=== PATIENT | female | born 1985 | race African-American/Black ===

== ENCOUNTER 2023-05-20 16:45 | Emergency (ER) | payer BC ==
[~2023-05-20] VITALS: Ht 157.5 cm; Wt 71.0 kg
[2023-05-20 17:07] VITALS: O2SAT 100
[2023-05-20] MEDS ORDERED: ONDANSETRON HCL 4MG/2ML INJ IV NR (17:15)
[2023-05-20 17:28] LABS: BASOPHILS % 0.2 % (0.0-2.0); EOSINOPHILS % 0.1 % (0.0-5.0); HEMATOCRIT. 34.1 % (36.0-48.0); HEMOGLOBIN. 11.6 g/dL (12.0-16.0); LYMPHOCYTES % 7.7 % (20.0-50.0); MEAN CORPUSCULAR HEMOGLOBIN 27.8 pg (28.0-32.0); MEAN CORPUSCULAR VOLUME 82.1 fL (81.0-99.0); MEAN PLATELET VOLUME 9.3 fl (7.4-10.4); MONOCYTES % 5.9 % (2.0-8.0); NEUTROPHILS % 86.1 % (40.0-76.0); PLATELET 303 x1000/uL (130-400); RED BLOOD CELL COUNT 4.15 mill/uL (4.2-5.4); RED CELL DISTRIBUTION WIDTH 16.2 % (11.6-14.6)
[2023-05-20 17:36] LABS: CHLORIDE 101 mEq/L (98-107)
[2023-05-20 17:54] LABS: HCG SCREEN NEGATIVE
[2023-05-20] MEDS ORDERED: MORPHINE SULFATE 4 MG/ML CPJ (NOT FOR IM USE) IV ONE ×2 (19:15→23:00)
[2023-05-20] MEDS ORDERED: SODIUM CHLORIDE 0.9% 1,000 ML IV ONE (23:00)
[2023-05-21 00:30] VITALS: BP 128/80; PULSE 80; RESP 19; TEMP 98.9
== END 2023-05-21 01:50 | disposition home or self-care (01) ==
LOC: ER 16:45
DX: R10.9 Unspecified abdominal pain (principal); Z90.710 Acquired absence of both cervix and uterus; Z98.890 Other specified postprocedural states
CPT/HCPCS: 99285; 96374; 76856; 96361; 96375; 80053; 84703; 85025; 36415; 96376; J2405; J2270; J7030